=== PATIENT | female | born 1970 | race Caucasian/White ===

== ENCOUNTER 2017-09-09 21:32 | Emergency (ER) | payer OTHER ==
[~2017-09-09] VITALS: Ht 154.9 cm; Wt 63.6 kg
[2017-09-09] MEDS ORDERED: ONDANSETRON HCL 4 MG TABLET PO ONE (22:45)
[2017-09-09] MEDS ORDERED: ACETAMINOPHEN/CODEINE 300-30 MG TABLET PO ONE (22:45)
[2017-09-09] MEDS ORDERED: IBUPROFEN 600 MG TABLET PO ONE (22:45)
[2017-09-09 23:36] LABS: APPEARANCE,URINE CLEAR (CLEAR); BILIRUBIN,URINE NEGATIVE (NEGATIVE); GLUCOSE, URINE (UA) NEGATIVE (NEGATIVE); KETONES,URINE NEGATIVE (NEGATIVE); LEUKOCYTE ESTERASE ,URINE MODERATE (NEGATIVE); NITRATE,URINE NEGATIVE (NEGATIVE); OCCULT BLOOD,URINE MODERATE (NEGATIVE); PH,URINE 6.5 (5.0-8.0); PROTEIN,URINE NEGATIVE (NEGATIVE); UROBILINOGEN,URINE 0.2 mg/dL (<=1.0)
[2017-09-09 23:52] LABS: BACTERIA,URINE Few /HPF (None Seen); WBC,URINE 51-100 /HPF (0-5)
[2017-09-09 23:54] LABS: SQUAMOUS EPITHELIAL CELL,UR Few /LPF (None Seen)
[2017-09-10 00:05] VITALS: BP 120/69
[2017-09-10] MEDS ORDERED: CEPHALEXIN MONOHYDRATE 500 MG CAPSULE PO ONE (00:15)
[2017-09-10] MEDS ORDERED: PHENAZOPYRIDINE HCL 100 MG TABLET PO ONE (00:15)
== END 2017-09-10 00:23 | disposition home or self-care (01) ==
LOC: EMS 21:33
DX: N39.0 Urinary tract infection, site not specified (principal)
CPT/HCPCS: 81001; 84703; 87077; 87086; 87186; 99284; Q0162